=== PATIENT | female | born 1995 | race Caucasian/White ===

== ENCOUNTER 2021-06-06 16:21 | Emergency (ER) | payer OTHER, MEDICAID | END 2021-06-06 17:50 | disposition home or self-care (01) | LOC: JD.ED 16:21 | DX: S16.1XXA Strain of muscle, fascia and tendon at neck level, initial encounter (principal); S39.012A Strain of muscle, fascia and tendon of lower back, initial encounter; S80.01XA Contusion of right knee, initial encounter; V49.40XA Driver injured in collision with unspecified motor vehicles in traffic accident, initial encounter; Y92.410 Unspecified street and highway as the place of occurrence of the external cause | CPT/HCPCS: 72040; 72040-26; 72100; 72100-26; 73564-26-RT; 73564-RT; 99284; 99284-25 ==